=== PATIENT | male | born 1940 | race Caucasian/White ===

== ENCOUNTER 2020-07-16 17:40 | Inpatient (IN) | payer MEDICARE ==
[2020-07-17 07:33] LABS: ALT (SGPT) 17 U/L (8-55); AST (SGOT) 13 U/L (5-34); Albumin 3.2 g/dL (3.4-4.8); Alkaline Phosphatase 114 U/L (40-110); Anion Gap 14 mmol/L (10-20); BUN (Urea Nitrogen) 14 mg/dL (8.4-25.7); Bilirubin, Total 0.3 mg/dL (0.2-1.2); Calc. Creatinine Clearance 0 mL/min (70-130); Calcium 7.3 mg/dL (7.8-10.44); Carbon Dioxide 18 mmol/L (23-31); Chloride 110 mmol/L (98-107); Globulin 2.1 g/dL (2.4-3.5); Glucose 97 mg/dL (83-110); Potassium 3.5 mmol/L (3.5-5.1); Protein, Total 5.3 g/dL (5.8-8.1); Sodium 138 mmol/L (136-145)
[2020-07-17 07:36] LABS: %Neutrophils 58.5 % (42.0-75.0); Hemoglobin 7.9 g/dL (14.0-18.0); Manual Diff?? NO; Mean Corpuscular HGB CONC 34.4 g/dL (32.0-36.0); Mean Corpuscular Hemoglobin 33.5 pg (27.0-31.0); Mean Corpuscular Volume 97.4 fL (78.0-98.0); Mean Platelet Volume 6.2 fL (7.4-10.4); Platelet Count 104 thou/uL (130-400); RBC Distribution Width 18.2 % (11.5-14.5); Red Blood Cell (RBC) Count 2.37 mill/uL (4.70-6.10); White Blood Cell (WBC) Count 3.8 thou/uL (4.8-10.8)
[2020-07-17 07:37] LABS: #Lymphocytes 0.8 thou/uL (1.20-3.40); #Monocytes 0.7 thou/uL (0.11-0.59); #Neutrophils 2.2 thou/uL (1.40-6.50); %Basophils 1.1 % (0.0-1.0); %Eosinophils 0.7 % (0.0-10.0); %Lymphocytes 21.2 % (21.0-51.0); %Monocytes 18.5 % (0.0-10.0)
[2020-07-17] MEDS ORDERED: Dexamethasone 4 MG TAB PO SCH (08:45)
[2020-07-17] MEDS ORDERED: Calcium Carbonate 600 MG + Vit D TAB PO SCH (09:00)
[2020-07-17] MEDS ORDERED: FERROUS FUMARATE 89 MG PO SCH (09:00)
[2020-07-17] MEDS ORDERED: Non-Formulary Item 1 EACH (Cholecalciferol (Vitamin D3) [Vitamin D3] 2,000 UNIT Capsule) PO SCH (09:00)
[2020-07-17] MEDS ORDERED: Non-Formulary Item 1 EACH (Cyanocobalamin (Vitamin B-12) [Vitamin B12] 2,500 MCG Tablet) PO SCH (09:00)
[2020-07-17] MEDS ORDERED: Dexamethasone 1 MG TAB PO SCH (09:00)
[2020-07-17] MEDS ORDERED: Ferrous Sulfate 325 MG TAB PO SCH (09:00)
[2020-07-17] MEDS ORDERED: Ondansetron ODT 4 MG TAB PO PRN (09:01)
[2020-07-17] MEDS: Polyethylene Glycol 3350 17 GM Packet PO SCH (10:42)
[2020-07-17] MEDS: Amlodipine 5 MG TAB PO SCH ×2 (10:43→20:41)
[2020-07-17] MEDS: Allopurinol 100 MG TAB PO SCH ×2 (10:43→20:41)
[2020-07-17] MEDS: Tamsulosin HCl 0.4 MG CAP PO SCH (10:44)
[2020-07-17] MEDS: Primidone 50 MG TAB PO SCH ×2 (10:44→20:40)
[2020-07-17] MEDS: Cyanocobalamin (Vitamin B-12) 1,000 MCG TAB PO SCH (10:45)
[2020-07-17] MEDS: Finasteride 5 MG TAB PO SCH (10:46)
[2020-07-17] MEDS: Folic Acid 1 MG TAB PO SCH (10:46)
[2020-07-17] MEDS: hydrALAZINE 25 MG TAB PO SCH ×3 (10:46→20:41)
[2020-07-17] MEDS: Cholecalciferol 1,000 UNITS (25 MCG) TAB PO SCH (10:46)
[2020-07-17] MEDS: HYDROcodone/Acetaminophen 10/325 mg Tablet PO PRN ×2 (15:05→20:37)
[2020-07-17] MEDS: Calcium Carbonate 600 MG + Vit D TAB PO SCH (17:25)
[2020-07-17] MEDS: traZODone HCl 50 MG TAB PO SCH (20:40)
[2020-07-17] MEDS: LOTEPREDNOL ETABONATE EA EYE SCH (20:41)
[2020-07-17] MEDS: PHENobarbital 32.4 MG TAB PO SCH (20:42)
[2020-07-17] MEDS: diphenhydrAMINE 25 MG CAP PO PRN (23:07)
[2020-07-18 06:00] LABS: Band 2 % (5-11); Bite Cells SLIGHT = 2-5 cells (100X) (0-1/hpf); Hemoglobin 7.7 g/dL (14.0-18.0); Hypochromia MODERATE=16-30 cells (100X) (0-5/hpf); Lymphocytes 22 % (21-51); MDiff Complete? YES; Mean Corpuscular HGB CONC 34.6 g/dL (32.0-36.0); Mean Corpuscular Hemoglobin 33.3 pg (27.0-31.0); Mean Corpuscular Volume 96.1 fL (78.0-98.0); Mean Platelet Volume 5.9 fL (7.4-10.4); Metamyelocyte 1 % (0-0); Microcytosis MODERATE=15-30 cells (100X) (0-5/hpf); Monocytes 12 % (0-10); Neutrophil 63 % (42-75); Ovalocytes SLIGHT = 2-5 cells (100X) (0-1/hpf); Platelet Count 99 thou/uL (130-400); Platelet Morphology Comment Appears Decreased; Poikilocytosis MODERATE=16-30 cells (100X) (0-5/hpf); RBC Distribution Width 16.9 % (11.5-14.5); Spherocytes SLIGHT = 1-5 cells (100X) (None Seen); Tear Drops SLIGHT = 2-5 cells (100X) (0-1/hpf); White Blood Cell (WBC) Count 3.4 thou/uL (4.8-10.8)
[2020-07-18] MEDS: Levothyroxine Sodium 75 MCG TAB PO SCH (06:00)
[2020-07-18] MEDS: HYDROcodone/Acetaminophen 10/325 mg Tablet PO PRN ×3 (06:02→20:28)
[2020-07-18 06:06] LABS: ALT (SGPT) 13 U/L (8-55); AST (SGOT) 12 U/L (5-34); Albumin 3.1 g/dL (3.4-4.8); Alkaline Phosphatase 115 U/L (40-110); Anion Gap 12 mmol/L (10-20); BUN (Urea Nitrogen) 15 mg/dL (8.4-25.7); Bilirubin, Total 0.4 mg/dL (0.2-1.2); Calc. Creatinine Clearance 45 mL/min (70-130); Calcium 7.8 mg/dL (7.8-10.44); Carbon Dioxide 21 mmol/L (23-31); Chloride 110 mmol/L (98-107); Globulin 2.1 g/dL (2.4-3.5); Glucose 96 mg/dL (83-110); Potassium 3.7 mmol/L (3.5-5.1); Protein, Total 5.2 g/dL (5.8-8.1); Sodium 139 mmol/L (136-145)
[2020-07-18] MEDS: Polyethylene Glycol 3350 17 GM Packet PO SCH (08:22)
[2020-07-18] MEDS: Cyanocobalamin (Vitamin B-12) 1,000 MCG TAB PO SCH (08:23)
[2020-07-18] MEDS: Cholecalciferol 1,000 UNITS (25 MCG) TAB PO SCH (08:23)
[2020-07-18] MEDS: Ferrous Sulfate 325 MG TAB PO SCH (08:24)
[2020-07-18] MEDS: Amlodipine 5 MG TAB PO SCH ×2 (08:25→20:28)
[2020-07-18] MEDS: Calcium Carbonate 600 MG + Vit D TAB PO SCH ×2 (08:25→16:51)
[2020-07-18] MEDS: Finasteride 5 MG TAB PO SCH (08:26)
[2020-07-18] MEDS: Allopurinol 100 MG TAB PO SCH ×2 (08:27→20:28)
[2020-07-18] MEDS: Folic Acid 1 MG TAB PO SCH (08:27)
[2020-07-18] MEDS: Tamsulosin HCl 0.4 MG CAP PO SCH (08:27)
[2020-07-18] MEDS: hydrALAZINE 25 MG TAB PO SCH ×3 (08:28→20:28)
[2020-07-18] MEDS: Primidone 50 MG TAB PO SCH ×2 (08:28→20:30)
[2020-07-18] MEDS: LOTEPREDNOL ETABONATE EA EYE SCH ×2 (08:30→20:26)
[2020-07-18] MEDS: Dexamethasone 1 MG TAB PO SCH (08:40)
[2020-07-18] MEDS ORDERED: FLU VACC QS2020-21(65YR UP)/PF 240 MCG/0.7 ML SYRINGE IM ONE (09:00)
[2020-07-18] MEDS: traZODone HCl 50 MG TAB PO SCH (20:26)
[2020-07-18] MEDS: diphenhydrAMINE 25 MG CAP PO PRN (20:27)
[2020-07-18] MEDS: PHENobarbital 32.4 MG TAB PO SCH (20:27)
[2020-07-19] MEDS: HYDROcodone/Acetaminophen 10/325 mg Tablet PO PRN ×2 (06:29→12:18)
[2020-07-19] MEDS: Levothyroxine Sodium 75 MCG TAB PO SCH (06:29)
[2020-07-19] MEDS: Polyethylene Glycol 3350 17 GM Packet PO SCH (08:50)
[2020-07-19] MEDS: LOTEPREDNOL ETABONATE EA EYE SCH ×2 (08:50→21:02)
[2020-07-19] MEDS: Tamsulosin HCl 0.4 MG CAP PO SCH (08:52)
[2020-07-19] MEDS: Finasteride 5 MG TAB PO SCH (08:52)
[2020-07-19] MEDS: Cholecalciferol 1,000 UNITS (25 MCG) TAB PO SCH (08:52)
[2020-07-19] MEDS: Folic Acid 1 MG TAB PO SCH (08:52)
[2020-07-19] MEDS: hydrALAZINE 25 MG TAB PO SCH ×3 (08:53→21:02)
[2020-07-19] MEDS: Calcium Carbonate 600 MG + Vit D TAB PO SCH ×2 (08:53→17:35)
[2020-07-19] MEDS: Ferrous Sulfate 325 MG TAB PO SCH (08:53)
[2020-07-19] MEDS: Dexamethasone 1 MG TAB PO SCH (08:53)
[2020-07-19] MEDS: Cyanocobalamin (Vitamin B-12) 1,000 MCG TAB PO SCH (08:53)
[2020-07-19] MEDS: Allopurinol 100 MG TAB PO SCH ×2 (08:54→21:01)
[2020-07-19] MEDS: Amlodipine 5 MG TAB PO SCH ×2 (09:20→21:01)
[2020-07-19] MEDS: Primidone 50 MG TAB PO SCH ×2 (10:21→20:58)
[2020-07-19] MEDS ORDERED: Ondansetron ODT 4 MG TAB PO PRN (13:45)
[2020-07-19] MEDS: PHENobarbital 32.4 MG TAB PO SCH (21:01)
[2020-07-19] MEDS: traZODone HCl 50 MG TAB PO SCH (21:01)
[2020-07-19] MEDS: diphenhydrAMINE 25 MG CAP PO PRN (22:00)
[2020-07-20] MEDS: Levothyroxine Sodium 75 MCG TAB PO SCH (05:52)
[2020-07-20] MEDS: HYDROcodone/Acetaminophen 10/325 mg Tablet PO PRN ×2 (08:12→16:02)
[2020-07-20] MEDS: Cyanocobalamin (Vitamin B-12) 1,000 MCG TAB PO SCH (08:14)
[2020-07-20] MEDS: Folic Acid 1 MG TAB PO SCH (08:14)
[2020-07-20] MEDS: Cholecalciferol 1,000 UNITS (25 MCG) TAB PO SCH (08:14)
[2020-07-20] MEDS: Primidone 50 MG TAB PO SCH ×2 (08:14→20:23)
[2020-07-20] MEDS: Amlodipine 5 MG TAB PO SCH ×2 (08:15→20:24)
[2020-07-20] MEDS: Calcium Carbonate 600 MG + Vit D TAB PO SCH ×2 (08:15→15:57)
[2020-07-20] MEDS: Ferrous Sulfate 325 MG TAB PO SCH (08:15)
[2020-07-20] MEDS: Finasteride 5 MG TAB PO SCH (08:15)
[2020-07-20] MEDS: Allopurinol 100 MG TAB PO SCH ×2 (08:16→20:24)
[2020-07-20] MEDS: Tamsulosin HCl 0.4 MG CAP PO SCH (08:16)
[2020-07-20] MEDS: Polyethylene Glycol 3350 17 GM Packet PO SCH (08:17)
[2020-07-20] MEDS: hydrALAZINE 25 MG TAB PO SCH ×3 (08:17→20:24)
[2020-07-20] MEDS: LOTEPREDNOL ETABONATE EA EYE SCH ×2 (08:17→20:25)
--- NOTE | 2020-07-20 11:25 | RAD ---
EXAM: Single view of the chest HISTORY: Chest pain and shortness of breath COMPARISON: 07/09/2020 FINDINGS: Single view of the chest shows an enlarged but stable cardiomediastinal silhouette. Is a sm all right pleural effusion. There may also be a trace left pleural effusion. No pneumothorax is seen. Multiple right rib fractures are seen. IMPRESSION: Small bilateral pleural effusions and cardiomegaly
[2020-07-20 11:56] LABS: Troponin I Less than 0.010 ng/mL (< 0.028)
[2020-07-20 12:04] LABS: MDiff Complete? YES; Mean Corpuscular HGB CONC 35.1 g/dL (32.0-36.0); Mean Corpuscular Hemoglobin 34.1 pg (27.0-31.0); Mean Corpuscular Volume 97.3 fL (78.0-98.0); Mean Platelet Volume 6.2 fL (7.4-10.4); Platelet Count 115 thou/uL (130-400); RBC Distribution Width 17.6 % (11.5-14.5); Red Blood Cell (RBC) Count 2.34 mill/uL (4.70-6.10); White Blood Cell (WBC) Count 4.2 thou/uL (4.8-10.8)
[2020-07-20 12:05] LABS: Anisocytosis SLIGHT = 6-15 cells (100X) (0-5/hpf); Band 1 % (5-11); Bite Cells SLIGHT = 2-5 cells (100X) (0-1/hpf); Hypochromia SLIGHT = 6-15 cells (100X) (0-5/hpf); Lymphocytes 21 % (21-51); Microcytosis SLIGHT = 6-15 cells (100X) (0-5/hpf); Monocytes 22 % (0-10); Neutrophil 56 % (42-75); Nucleated RBC 1 % (0); Ovalocytes SLIGHT = 2-5 cells (100X) (0-1/hpf); Platelet Morphology Comment Appears Decreased; Poikilocytosis SLIGHT = 6-15 cells (100X) (0-5/hpf); Tear Drops SLIGHT = 2-5 cells (100X) (0-1/hpf)
[2020-07-20] MEDS: traZODone HCl 50 MG TAB PO SCH (20:24)
[2020-07-20] MEDS: PHENobarbital 32.4 MG TAB PO SCH (20:24)
[2020-07-21] MEDS: HYDROcodone/Acetaminophen 10/325 mg Tablet PO PRN ×4 (00:14→20:42)
[2020-07-21] MEDS: diphenhydrAMINE 25 MG CAP PO PRN ×2 (00:14→20:42)
[2020-07-21] MEDS: Levothyroxine Sodium 75 MCG TAB PO SCH (06:19)
--- NOTE | 2020-07-21 06:29 | PRG ---
DATE OF SERVICE: 07/20/2020 SUBJECTIVE: The patient complaining of recurrent pain, which he states he has had this in the past when he is doing exercises. He is having no cough, fever or chills, diaphoresis, or shortness of breath. OBJECTIVE: VITAL SIGNS: Shows temperature is 98.5, pulse 97, respirations 20, O2 saturations 92% on room air, and blood pressure 137/64. LUNGS: Clear. CARDIAC: Shows regular rhythm. ABDOMEN: Soft, nontender. DIAGNOSTIC DATA: Chest x-ray showed persistent small bilateral effusion, cardiomegaly, but also shows multiple bilateral rib fractures old. Laboratory shows troponin normal and EKG shows sinus rhythm. ASSESSMENT: 1. Chest pain, most likely due to old rib fractures and we will discuss the family. 2. Multiple myeloma, stable, but with significant deconditioning. 3. Urinary retention. Romo catheter in place. 4. Malnutrition, hypoalbuminemia, eating well. Continue to monitor. PLAN: 1. Continue PT and OT. We will decrease intensity of exercise as the patient is very exhausted. 2. Chest pain, most likely due to rib fractures and will be careful with diffuse multiple myeloma. 3. Urinary retention, stable. Romo catheter in place. 4. Seizure disorder with subtherapeutic Dilantin level. We will repeat Dilantin level today. Job ID: [id number]
--- NOTE | 2020-07-21 06:33 | PRG ---
DATE OF SERVICE: 07/19/2020 SUBJECTIVE: The patient feels well and ready for therapy today, rested well through the weekend. OBJECTIVE: VITAL SIGNS: Show temperature is 98, pulse 87, respirations 18, and O2 saturations 92% on room air. LUNGS: Show decreased breath sounds in the bases. CARDIAC: Showed regular rhythm. ASSESSMENT: 1. Kyphoplasty, lumbar spine with decreased back pain. 2. Deconditioning, ready for more therapy. 3. Multiple myeloma on treatment with persistent anemia, but ready for more therapy. 4. Urinary retention. Romo catheter in place, continue until discharge. PLAN: Start PT/OT today. Continue pain relief as needed. Continue to stress nutrition. Continue to monitor for recurrent anemia. Job ID: [id number]
--- NOTE | 2020-07-21 06:33 | PRG ---
DATE OF SERVICE: 07/18/2020 OBJECTIVE: The patient is lying in bed, feels well, enjoying the rest day prior to his onset of therapy tomorrow. Having no shortness of breath or chest pain at rest and is eating well. OBJECTIVE: VITAL SIGNS: Show temperature 97.2, pulse 91, respirations 16, O2 saturations 92% on room air, blood pressure 158/66. HEENT: Shows pale sclerae. Conjunctivae injected. LUNGS: Show decreased breath sounds at bases. CARDIAC: Shows regular rhythm. ABDOMEN: Soft, nontender. LABORATORY DATA: Hemoglobin 7.7, white count 3400, platelets 99,000. Sodium 139, potassium 3.7, chloride 110, bicarb 21, BUN 15, creatinine 1.25, phosphatase 150, albumin 3.1. ASSESSMENT: 1. Multiple myeloma, stable on Velcade treatment. 2. Recent kyphoplasty with markedly decreased back pain. 3. Severe deconditioning, awaiting physical therapy tomorrow. 4. Urinary retention, on tamsulosin and finasteride with Romo catheter in place until seen by Urology. Job ID: [id number]
--- NOTE | 2020-07-21 07:11 | HP ---
HISTORY OF PRESENT ILLNESS: The patient is an unfortunate 80-year-old white male with a history of multiple myeloma, being treated for several years by Dr. Patel Villavicencio with Velcade treatment, who has been found to have also chronic lower back pain for years with recent finding of compression fracture of T11 as well as stenosis at L4-5. He electively had kyphoplasty done of L4-L5, T11 for pain relief and has had improvement in his pain. However, he has developed complications postoperatively of urinary retention, requiring Romo catheter and has become severely weakened and felt to be unable to be discharged home, and therefore has been admitted to [facility] for therapy. He has had problems with recurrent anemia secondary to his multiple myeloma and has required transfusions, most recent on July 11. He, however, is still very weak with minimal symptoms at rest, but with significant dyspnea on minimal exertion. He also has had recurrent pain in his chest and PET scan had shown multiple rib fractures with diffuse mottling of his ribs well as his spine. He has been found to have a very large effusion and seen by Pulmonary, and was felt that these were not large enough for thoracentesis. He will be treated with diuretics, felt that this possibly was some slight fluid overload. He is not complaining of any dyspnea at rest and he only has chest pain on significant exertion. PAST MEDICAL HISTORY: Positive for the above-mentioned multiple myeloma. He also has a history of colon cancer with lymph node dissection and a colostomy with a parastomal hernia, one time causing obstruction. He also has a history of hypertension, off medications at this time. Epilepsy, hyperlipidemia, hypothyroidism. PAST SURGICAL HISTORY: Positive for colon and rectal surgeries, colostomy since 2001, tonsillectomy, , laminectomy in the late 70s and early 80s. FAMILY MEDICAL HISTORY: Positive for father with skin cancer and brain cancer. Mother with lymph node cancer, in her 70s. Sister with fibrosis. Another sister with lung cancer. SOCIAL HISTORY: Denies any nicotine or alcohol abuse. ALLERGIES: HE HAS NO KNOWN ALLERGIES. MEDICATIONS: On admission include: 1. Amlodipine 5 mg twice daily. 2. Allopurinol 100 twice daily. 3. Vitamin D 2000 units daily. 4. Ferrous sulfate 325 daily. 5. Finasteride 5 daily. 6. Folic acid 1 mg daily. 7. Hydralazine 25 three times daily. 8. Levothyroxine 75 mcg daily. 9. Dilantin 200 mg twice daily. 10. MiraLAX 17 g daily. 11. Tamsulosin 0.4 daily. 12. Trazodone 50 nightly. REVIEW OF SYSTEMS: HEENT: He denies any headaches, dizziness, change in vision, hearing, hoarseness, or dysphagia. PULMONARY: He denies cough, sputum production, pneumonia. He has had recurrent chest pain. He has had some shortness of breath with exertion. GASTROINTESTINAL: He has fair appetite, recurrent nausea. No abdominal pain, but some mild constipation. He has ostomy. GENITOURINARY: He has markedly decreased stream progressing over the last several months and now has had Romo catheter placed, and will be kept in until seen by Urology. MUSCULOSKELETAL: He has chronic lower back pain, now is having usually, mainly with weakness, but the back pain has improved after the kyphoplasty. NEUROLOGIC: He has diffuse generalized weakness, but localized numbness and tingling PHYSICAL EXAMINATION: VITAL SIGNS: Temperature is 97, respirations 18, O2 sats 94% on room air, blood pressure 139/66. HEENT: Pupils are equal, round, and reactive to light and accommodations. Sclerae are pale. Right conjunctiva slightly injected. Oral mucous membranes are dehydrated. NECK: Supple. There are no nodes or masses. JVP is not elevated. LUNGS: Show decreased breath sounds at bases. No rales, rhonchi, rubs, or wheezes. CARDIAC: Shows regular rhythm. No gallops or murmurs. ABDOMEN: Soft and nontender. No masses or organomegaly. SKIN/EXTREMITIES: Show decreased skin turgor. No edema, clubbing, or cyanosis. NEUROLOGIC: Cranial nerves 2 through 12 are intact. Deep tendon reflex 2+ and equal. There are absent Babinski's. LABORATORY DATA: Shows hemoglobin 7.9, hematocrit 23, white count of 3800, platelet count 104,000. Sodium 138, potassium 3.5, chloride 110, bicarb 18, BUN 14, creatinine 1.14, calcium 7.3, alkaline phosphatase 114, protein 5.3, albumin 3.2. Dialysis has not been done recently. Dilantin level subtherapeutic at 4.6, recent. ASSESSMENT: 1. An 80-year-old white male with history of multiple myeloma, on chemotherapy under Dr. Villavicencio with most recent dose of Velcade earlier this week. No further treatment required, but with recurrent anemia, requiring periodic transfusion if hemoglobin is less than 7. 2. Recent kyphoplasty for compression fracture of lumbar spine and spinal stenosis with markedly decreased pain. 3. New onset of urinary retention, likely due to benign prostatic hypertrophy, now on tamsulosin and finasteride with Romo catheter in place until seen by urologist. 4. Recurrent onset of hypertension, now on treatment with fair control. We will monitor closely. 5. History of epilepsy, on Dilantin with subtherapeutic level and we will repeat dose and level. 6. Recurrent anemia and poor nutrition, but the patient is eating well. We will monitor closely. Continue on B12 and iron supplementation. PLAN: 1. PT, OT. 2. Check Dilantin levels. 3. Continue prehospitalization medications. 4. Monitor for recurrent anemia. 5. Monitor vital signs with therapy. Job ID: [id number]
[2020-07-21] MEDS: Polyethylene Glycol 3350 17 GM Packet PO SCH (08:47)
[2020-07-21] MEDS: LOTEPREDNOL ETABONATE EA EYE SCH ×2 (08:47→20:40)
[2020-07-21] MEDS: Ferrous Sulfate 325 MG TAB PO SCH (08:48)
[2020-07-21] MEDS: hydrALAZINE 25 MG TAB PO SCH ×3 (08:48→20:40)
[2020-07-21] MEDS: Primidone 50 MG TAB PO SCH ×2 (08:49→20:40)
[2020-07-21] MEDS: Finasteride 5 MG TAB PO SCH (08:49)
[2020-07-21] MEDS: Cholecalciferol 1,000 UNITS (25 MCG) TAB PO SCH (08:49)
[2020-07-21] MEDS: Calcium Carbonate 600 MG + Vit D TAB PO SCH ×2 (08:49→17:09)
[2020-07-21] MEDS: Cyanocobalamin (Vitamin B-12) 1,000 MCG TAB PO SCH (08:50)
[2020-07-21] MEDS: Allopurinol 100 MG TAB PO SCH ×2 (08:50→20:42)
[2020-07-21] MEDS: Tamsulosin HCl 0.4 MG CAP PO SCH (08:50)
[2020-07-21] MEDS: Folic Acid 1 MG TAB PO SCH (08:50)
[2020-07-21] MEDS: Amlodipine 5 MG TAB PO SCH ×2 (08:53→20:41)
[2020-07-21] MEDS: traZODone HCl 50 MG TAB PO SCH (20:41)
[2020-07-21] MEDS: PHENobarbital 32.4 MG TAB PO SCH (20:42)
[2020-07-22] MEDS: HYDROcodone/Acetaminophen 10/325 mg Tablet PO PRN ×4 (03:46→22:12)
[2020-07-22] MEDS: Levothyroxine Sodium 75 MCG TAB PO SCH (06:07)
--- NOTE | 2020-07-22 06:17 | PRG ---
DATE OF SERVICE: 07/21/2020 SUBJECTIVE: The patient became very fatigued and tachycardic with therapy today with heart rate up to 139. EKG only showed sinus tachycardia and heart rate did decrease when placed at bed rest. He did not complain of any chest pain or shortness of breath, but just stated he was very fatigued, O2 sats remained stable on 97% to 98%. OBJECTIVE: LUNGS: Remained clear. CARDIAC: Showed regular rhythm. ABDOMEN: Soft and nontender. LABORATORY DATA: Previous day CBC has been stable as well as troponin. ASSESSMENT: 1. Significant deconditioning with significant tachycardia with exercise but returned to rest with no symptoms at rest. 2. Multiple myeloma significant but stable with hemoglobin slightly increased to 8. 3. Stable rib fractures causing pain, but with decreasing pain in the back after kyphoplasty. 4. Urinary retention, stable with Romo catheter in place. PLAN: 1. Discuss with Physical Therapy and decrease intensity of therapy. 2. Repeat CBC in the a.m. to ensure no significant decrease in hemoglobin and dehydration. 3. I had a long discussion with son about his prognosis and inability to tolerate intensive therapy and we will attempt to decrease intensity and hopefully increase the patient's strength. Job ID: [id number]
[2020-07-22 06:32] LABS: Anion Gap 14 mmol/L (10-20); BUN (Urea Nitrogen) 21 mg/dL (8.4-25.7); Calc. Creatinine Clearance 42 mL/min (70-130); Calcium 8.1 mg/dL (7.8-10.44); Carbon Dioxide 21 mmol/L (23-31); Chloride 108 mmol/L (98-107); Glucose 100 mg/dL (83-110); Potassium 4.7 mmol/L (3.5-5.1); Sodium 138 mmol/L (136-145)
[2020-07-22 06:38] LABS: Anisocytosis SLIGHT = 6-15 cells (100X) (0-5/hpf); Band 10 % (5-11); Eosinophils 1 % (0-10); Hemoglobin 7.6 g/dL (14.0-18.0); Lymphocytes 39 % (21-51); MDiff Complete? YES; Mean Corpuscular HGB CONC 33.8 g/dL (32.0-36.0); Mean Corpuscular Hemoglobin 33.4 pg (27.0-31.0); Mean Corpuscular Volume 98.8 fL (78.0-98.0); Mean Platelet Volume 6.6 fL (7.4-10.4); Microcytosis SLIGHT = 6-15 cells (100X) (0-5/hpf); Monocytes 1 % (0-10); Neutrophil 49 % (42-75); Ovalocytes SLIGHT = 2-5 cells (100X) (0-1/hpf); Platelet Count 111 thou/uL (130-400); Platelet Morphology Comment Appears Decreased; Poikilocytosis SLIGHT = 6-15 cells (100X) (0-5/hpf); RBC Distribution Width 17.8 % (11.5-14.5); Red Blood Cell (RBC) Count 2.27 mill/uL (4.70-6.10); White Blood Cell (WBC) Count 4.4 thou/uL (4.8-10.8)
[2020-07-22] MEDS: Primidone 50 MG TAB PO SCH ×2 (08:34→20:39)
[2020-07-22] MEDS: Calcium Carbonate 600 MG + Vit D TAB PO SCH ×2 (08:34→15:57)
[2020-07-22] MEDS: LOTEPREDNOL ETABONATE EA EYE SCH ×2 (08:34→20:40)
[2020-07-22] MEDS: Folic Acid 1 MG TAB PO SCH (08:35)
[2020-07-22] MEDS: hydrALAZINE 25 MG TAB PO SCH ×3 (08:35→20:38)
[2020-07-22] MEDS: Finasteride 5 MG TAB PO SCH (08:35)
[2020-07-22] MEDS: Cholecalciferol 1,000 UNITS (25 MCG) TAB PO SCH (08:35)
[2020-07-22] MEDS: Tamsulosin HCl 0.4 MG CAP PO SCH (08:35)
[2020-07-22] MEDS: Allopurinol 100 MG TAB PO SCH ×2 (08:36→20:39)
[2020-07-22] MEDS: Amlodipine 5 MG TAB PO SCH ×2 (08:36→20:38)
[2020-07-22] MEDS: Ferrous Sulfate 325 MG TAB PO SCH (08:36)
[2020-07-22] MEDS: Polyethylene Glycol 3350 17 GM Packet PO SCH (08:37)
[2020-07-22] MEDS: Cyanocobalamin (Vitamin B-12) 1,000 MCG TAB PO SCH (08:37)
[2020-07-22] MEDS: traZODone HCl 50 MG TAB PO SCH (20:38)
[2020-07-22] MEDS: PHENobarbital 32.4 MG TAB PO SCH (20:40)
[2020-07-23] MEDS: Levothyroxine Sodium 75 MCG TAB PO SCH (05:31)
[2020-07-23] MEDS: HYDROcodone/Acetaminophen 10/325 mg Tablet PO PRN ×3 (08:18→20:51)
[2020-07-23] MEDS: Polyethylene Glycol 3350 17 GM Packet PO SCH (08:18)
[2020-07-23] MEDS: Tamsulosin HCl 0.4 MG CAP PO SCH (08:21)
[2020-07-23] MEDS: Cyanocobalamin (Vitamin B-12) 1,000 MCG TAB PO SCH (08:21)
[2020-07-23] MEDS: Calcium Carbonate 600 MG + Vit D TAB PO SCH ×2 (08:21→16:07)
[2020-07-23] MEDS: Ferrous Sulfate 325 MG TAB PO SCH (08:21)
[2020-07-23] MEDS: Cholecalciferol 1,000 UNITS (25 MCG) TAB PO SCH (08:21)
[2020-07-23] MEDS: Primidone 50 MG TAB PO SCH ×2 (08:22→20:50)
[2020-07-23] MEDS: Folic Acid 1 MG TAB PO SCH (08:22)
[2020-07-23] MEDS: Finasteride 5 MG TAB PO SCH (08:22)
[2020-07-23] MEDS: Amlodipine 5 MG TAB PO SCH ×2 (08:23→20:50)
[2020-07-23] MEDS: hydrALAZINE 25 MG TAB PO SCH ×3 (08:24→20:49)
[2020-07-23] MEDS: Allopurinol 100 MG TAB PO SCH ×2 (08:33→20:49)
[2020-07-23] MEDS: LOTEPREDNOL ETABONATE EA EYE SCH ×2 (08:34→20:58)
--- NOTE | 2020-07-23 11:57 | CT ---
THORACIC SPINE CT WITHOUT CONTRAST: HISTORY: Thoracic spine fractures. COMPARISON: None. CORRELATION: Thoracic spine MRI 06/22/2020. FINDINGS: The visualized mediastinum does not demonstrate any mass, lymphadenopathy or hematoma. Heart is sligh tly enlarged. No significant pericardial fluid. There are small bilateral pleural effusions. Bilateral adjacent lung consolidation likely due to atelectasis. Trachea and central bronchi are bower nt. Subdiaphragmatic structures do not demonstrate any acute abnormality. There is evidence of pneumobili a. Correlate for possible previous intervention at the sphincter of Oddi. There is diffuse abnormal attenuation and demineralization throughout the thoracic spine. There is pr evious vertebroplasty change at T7. There are compression fractures with mild loss of vertebral body height at T11 and T12. When comparing the previous CT, no interval change in loss of vertebral b chidi height. There are no new compression fractures throughout the visualized thoracic spine. There are varying degrees of central canal stenosis and neural foraminal narrowing due to degenerativ e change. Technique limits evaluation. IMPRESSION: 1. Diffuse abnormal attenuation of the thoracic vertebrae, presumed to be due to extensive multiple m yeloma. 2. Stable compression fracture at T11 and T12. Stable post treatment change at T7. No new thoracic sp ine fractures are appreciated. Diffuse bone demineralization does limit evaluation. Transcribed Date/Time: 07/23/2020 12:01 PM
[2020-07-23] MEDS ORDERED: HYDROcodone/Acetaminophen 10/325 mg Tablet PO SCH (12:15)
--- NOTE | 2020-07-23 12:25 | CT ---
CT LUMBAR SPINE NONCONTRAST: DATE: 07/23/2020. HISTORY: An 80-year-old male with multiple myeloma and low back pain. Compression fractures. COMPARISON: MRI of 06/22/2020. FINDINGS: There are 5 lumbar-type vertebrae. There is severe, diffuse osteopenia. No major spondylolisthesis. Baastrup's disease throughout. No major spondylolisthesis or scoliosis. T11-12: Old compression fracture of T12 superior end plate depression resulting in a maximum of appr oximately 60-75% loss of height, slightly greater on prior MRI. Moderate to severe right and moderat e left neural foraminal stenosis. Mild to moderate bony retropulsion, greater than on the prior stud y, and this involves the entire vertical length of the posterior aspect of the T12 vertebral body, re sulting in mild to moderate central spinal canal stenosis. T12-L1: Broad-based disk-osteophytic bar complex encroaches upon the spinal canal but does not cause significant central spinal canal stenosis. High-grade bilateral neural foraminal stenosis. L1-2: Prominent broad-based disk-osteophyte complex indents the ventral aspect of the thecal sac, ca using mild to moderate central spinal canal stenosis. Moderate bilateral neural foraminal stenosis. No significant interval change. L2-3: Prominent central depression of superior end plate of L3 consistent with prominent Schmorl's n ode. In addition, there has also been mild anterior wedge compression deformity of the anterior supe rior end plate resulting in mild loss of height, slightly greater than previously. The moderately lar ge central disk-osteophyte complex deeply indents the thecal sac and causes moderate to severe centra l spinal canal stenosis. There is moderate bilateral neural foraminal stenosis. There is new verteb roplasty cement within the L3 vertebral body. L3-4: Broad-based disk-osteophyte complex. Moderate ligamentum flavum thickening. Mild bilateral f acet DJD. Moderate bilateral neural foraminal stenosis. Moderate central spinal canal stenosis. Mi ld, broad depression of superior end plate of L4, similar to prior study. New vertebroplasty cement within the L4 vertebral body. L4-5: Partial ankylosis across the posterior aspect of the disk space. Possible old right hemilamin ectomy, but with bony overgrowth such that the defect has closed. No central spinal canal stenosis. Moderate bilateral neural foraminal stenosis. Ankylosis of bilateral facet joints. L5-S1: No central spinal canal stenosis. Bilateral mild to moderate facet DJD. Bilateral moderate neural foraminal stenosis. IMPRESSION: 1. Severe osteopenia: evidence for a multiple myeloma. 2. Old compression fracture of T12, probably slightly worse than before. 3. Compression fractures of L3 and L4 treated with vertebroplasty. 4. Multilevel moderate bilateral neural foraminal stenosis. POS: AH
[2020-07-23 17:22] LABS: Hemoglobin 8.7 g/dL (14.0-18.0)
[2020-07-23] MEDS: PHENobarbital 32.4 MG TAB PO SCH (20:49)
[2020-07-23] MEDS: traZODone HCl 50 MG TAB PO SCH (20:49)
[2020-07-24] MEDS: HYDROcodone/Acetaminophen 10/325 mg Tablet PO PRN ×6 (01:00→21:41)
[2020-07-24] MEDS: Levothyroxine Sodium 75 MCG TAB PO SCH (05:38)
[2020-07-24] MEDS: Ferrous Sulfate 325 MG TAB PO SCH (08:22)
[2020-07-24] MEDS: Tamsulosin HCl 0.4 MG CAP PO SCH (08:22)
[2020-07-24] MEDS: Calcium Carbonate 600 MG + Vit D TAB PO SCH ×2 (08:22→17:09)
[2020-07-24] MEDS: Polyethylene Glycol 3350 17 GM Packet PO SCH (08:23)
[2020-07-24] MEDS: Cholecalciferol 1,000 UNITS (25 MCG) TAB PO SCH (08:23)
[2020-07-24] MEDS: Cyanocobalamin (Vitamin B-12) 1,000 MCG TAB PO SCH (08:24)
[2020-07-24] MEDS: hydrALAZINE 25 MG TAB PO SCH ×3 (08:24→21:30)
[2020-07-24] MEDS: Finasteride 5 MG TAB PO SCH (08:24)
[2020-07-24] MEDS: Allopurinol 100 MG TAB PO SCH ×2 (08:24→21:31)
[2020-07-24] MEDS: Folic Acid 1 MG TAB PO SCH (08:25)
[2020-07-24] MEDS: Amlodipine 5 MG TAB PO SCH ×2 (08:25→21:29)
[2020-07-24] MEDS: LOTEPREDNOL ETABONATE EA EYE SCH ×2 (08:26→21:31)
--- NOTE | 2020-07-24 08:54 | PRG ---
DATE OF SERVICE: 07/24/2020 HISTORY OF PRESENT ILLNESS: This is an 80-year-old male with history of multiple myeloma, here for PT and OT services. The patient continues to be very fatigue and tachycardiac with Therapy and Primary team is attempted to decrease the intensity and increase the patient's strength; however, patient does have significant pain and had a persisting complaint of chest pain since he has been here. Workup previously has been unremarkable with negative troponin. This pain is improved with [place] that the patient gets p.r.n. OBJECTIVE: VITAL SIGNS: Temperature 98.4, pulse 94 to 99, blood pressure 132/62 to 159/72, respirations 20, O2 saturations 95% on room air. GENERAL: Frail appearing 80-year-old male lying in bed, ill-appearing patient. HEART: Regular rate and rhythm. No murmurs, gallops, or rubs. RESPIRATORY: Clear to auscultation bilaterally. No wheezes or rhonchi. CHEST: Tender to palpation diffusely on the chest with the patient being more tender at the site of his rib fractures. GI: Soft, nontender to palpation. Bowel sounds positive in all 4 quadrants. EXTREMITIES: Generalized weakness. ASSESSMENT: 1. Significant deconditioning with tachycardia during exercise, but with return to regular rate at rest. 2. Chronic chest pain with unremarkable previous workup. This is likely due to his multiple rib fractures and general prognosis due to his multiple myeloma. We will continue to monitor. 3. Multiple myeloma with stable H and H. 4. Stable rib fractures causing pain. 5. Urinary retention with Romo. PLAN: 1. PT/OT has been d/c'd by primary physician. 2. Continue to monitor H and H with serial CBCs. 3. Continue to monitor chest pain at this time. The patient's symptoms did not appear to be cardiac as he does not have any radiation of the pain or sweating or shortness of breath, but this pain seems to be chronic and due to his rib fractures; however, if he does exhibit any cardiac symptoms, concomitantly with the chest pain, we will need to do a stat EKG and troponin. The patient is overall stable at this time. Job ID: [id number] MTDD
[2020-07-24] MEDS: Primidone 50 MG TAB PO SCH ×2 (09:43→21:30)
[2020-07-24] MEDS: traZODone HCl 50 MG TAB PO SCH (21:29)
[2020-07-24] MEDS: PHENobarbital 32.4 MG TAB PO SCH (21:29)
[2020-07-24] MEDS: diphenhydrAMINE 25 MG CAP PO PRN (21:31)
[2020-07-25] MEDS: HYDROcodone/Acetaminophen 10/325 mg Tablet PO PRN ×6 (02:08→22:52)
[2020-07-25] MEDS: Levothyroxine Sodium 75 MCG TAB PO SCH (06:21)
[2020-07-25] MEDS: Primidone 50 MG TAB PO SCH ×2 (09:00→21:12)
[2020-07-25] MEDS: Calcium Carbonate 600 MG + Vit D TAB PO SCH ×2 (09:00→17:40)
[2020-07-25] MEDS: Ferrous Sulfate 325 MG TAB PO SCH (09:00)
[2020-07-25] MEDS: Tamsulosin HCl 0.4 MG CAP PO SCH (09:01)
[2020-07-25] MEDS: Polyethylene Glycol 3350 17 GM Packet PO SCH (09:01)
[2020-07-25] MEDS: Cholecalciferol 1,000 UNITS (25 MCG) TAB PO SCH (09:01)
[2020-07-25] MEDS: hydrALAZINE 25 MG TAB PO SCH ×3 (09:02→21:14)
[2020-07-25] MEDS: Amlodipine 5 MG TAB PO SCH ×2 (09:02→21:13)
[2020-07-25] MEDS: Cyanocobalamin (Vitamin B-12) 1,000 MCG TAB PO SCH (09:02)
[2020-07-25] MEDS: Folic Acid 1 MG TAB PO SCH (09:02)
[2020-07-25] MEDS: Allopurinol 100 MG TAB PO SCH ×2 (09:02→21:14)
[2020-07-25] MEDS: Finasteride 5 MG TAB PO SCH (09:02)
[2020-07-25] MEDS: LOTEPREDNOL ETABONATE EA EYE SCH ×2 (09:03→21:12)
[2020-07-25] MEDS ORDERED: Sodium Chloride 0.9% 10 ML ONE (10:39)
[2020-07-25] MEDS: traZODone HCl 50 MG TAB PO SCH (21:12)
[2020-07-25] MEDS: PHENobarbital 32.4 MG TAB PO SCH (21:14)
[2020-07-26] MEDS: HYDROcodone/Acetaminophen 10/325 mg Tablet PO PRN ×6 (02:33→23:31)
[2020-07-26] MEDS: Levothyroxine Sodium 75 MCG TAB PO SCH (05:53)
[2020-07-26] MEDS ORDERED: Sodium Chloride 0.9% 10 ML ONE (08:11)
[2020-07-26] MEDS: Calcium Carbonate 600 MG + Vit D TAB PO SCH ×2 (08:20→17:57)
[2020-07-26] MEDS: Amlodipine 5 MG TAB PO SCH ×2 (08:20→21:32)
[2020-07-26] MEDS: Polyethylene Glycol 3350 17 GM Packet PO SCH (08:20)
[2020-07-26] MEDS: Cholecalciferol 1,000 UNITS (25 MCG) TAB PO SCH (08:20)
[2020-07-26] MEDS: Folic Acid 1 MG TAB PO SCH (08:21)
[2020-07-26] MEDS: hydrALAZINE 25 MG TAB PO SCH ×3 (08:21→21:33)
[2020-07-26] MEDS: Ferrous Sulfate 325 MG TAB PO SCH (08:21)
[2020-07-26] MEDS: Allopurinol 100 MG TAB PO SCH ×2 (08:21→21:32)
[2020-07-26] MEDS: Cyanocobalamin (Vitamin B-12) 1,000 MCG TAB PO SCH (08:21)
[2020-07-26] MEDS: Tamsulosin HCl 0.4 MG CAP PO SCH (08:21)
[2020-07-26] MEDS: LOTEPREDNOL ETABONATE EA EYE SCH ×2 (08:24→21:34)
[2020-07-26] MEDS: Primidone 50 MG TAB PO SCH ×2 (08:24→23:31)
[2020-07-26] MEDS: Finasteride 5 MG TAB PO SCH (08:24)
[2020-07-26] MEDS ORDERED: Dexamethasone 4 MG TAB PO SCH (14:15)
[2020-07-26] MEDS ORDERED: valACYclovir 500 MG TAB PO SCH (15:00)
--- NOTE | 2020-07-26 15:30 | PRG ---
DATE OF SERVICE: 07/26/2020 SUBJECTIVE: Patient feels weak with persistent pain in his back and chest with any movement, but tolerable at rest. He is having no shortness of breath. He is eating well. OBJECTIVE: LUNGS: Clear. CARDIAC: Shows regular rhythm. ABDOMEN: Soft, nontender. CT of the thoracic spine has shown slightly enlarged heart. No significant pericardial fluid. Small bilateral effusions, atelectasis bilaterally, diffuse attenuation throughout thoracic spine. No new compression fractures in the thoracic spine, but lumbar spine does show possible increased compression of T12. ASSESSMENT: 1. Significant debility increasing pain limiting exercise. 2. Diffuse multiple myeloma, status post treatment 2 weeks ago, planning for treatment today and visit with Dr. Villavicencio today and discussion about ongoing therapy. 3. Urinary retention, stable. PLAN: 1. Hold therapy until seen by Dr. Villavicencio and Dr. Kelly this week if he has any evidence of other types of pain relief. 2. Chemotherapy and evaluation by Dr. Villavicencio today. 3. Continue pain relief as needed. 4. Continue Romo catheter. Job ID: [id number]
[2020-07-26] MEDS: diphenhydrAMINE 25 MG CAP PO PRN (21:33)
[2020-07-26] MEDS: traZODone HCl 50 MG TAB PO SCH (21:33)
[2020-07-26] MEDS: PHENobarbital 32.4 MG TAB PO SCH (21:33)
[2020-07-27] MEDS: HYDROcodone/Acetaminophen 10/325 mg Tablet PO PRN ×5 (06:28→22:59)
[2020-07-27] MEDS: Levothyroxine Sodium 75 MCG TAB PO SCH (06:29)
[2020-07-27] MEDS: Calcium Carbonate 600 MG + Vit D TAB PO SCH ×2 (08:31→16:22)
[2020-07-27] MEDS: Ferrous Sulfate 325 MG TAB PO SCH (08:31)
[2020-07-27] MEDS: Primidone 50 MG TAB PO SCH ×2 (09:26→20:38)
[2020-07-27] MEDS: Cholecalciferol 1,000 UNITS (25 MCG) TAB PO SCH (09:27)
[2020-07-27] MEDS: Folic Acid 1 MG TAB PO SCH (09:27)
[2020-07-27] MEDS: hydrALAZINE 25 MG TAB PO SCH ×3 (09:27→20:40)
[2020-07-27] MEDS: Amlodipine 5 MG TAB PO SCH ×2 (09:27→20:39)
[2020-07-27] MEDS: Cyanocobalamin (Vitamin B-12) 1,000 MCG TAB PO SCH (09:27)
[2020-07-27] MEDS: LOTEPREDNOL ETABONATE EA EYE SCH ×2 (09:29→20:42)
[2020-07-27] MEDS: Tamsulosin HCl 0.4 MG CAP PO SCH (09:29)
[2020-07-27] MEDS: Finasteride 5 MG TAB PO SCH (09:29)
[2020-07-27] MEDS: valACYclovir 500 MG TAB PO SCH (09:29)
[2020-07-27] MEDS: Allopurinol 100 MG TAB PO SCH ×2 (09:29→20:39)
[2020-07-27] MEDS: Polyethylene Glycol 3350 17 GM Packet PO SCH (09:30)
[2020-07-27] MEDS: traZODone HCl 50 MG TAB PO SCH (20:38)
[2020-07-27] MEDS: PHENobarbital 32.4 MG TAB PO SCH (20:39)
[2020-07-27] MEDS: diphenhydrAMINE 25 MG CAP PO PRN (23:02)
[2020-07-28] MEDS: HYDROcodone/Acetaminophen 10/325 mg Tablet PO PRN ×7 (04:00→23:39)
[2020-07-28] MEDS: Levothyroxine Sodium 75 MCG TAB PO SCH ×2 (05:32→10:40)
[2020-07-28] MEDS ORDERED: HYDROcodone/Acetaminophen 10/325 mg Tablet ONE ×4 (09:09→23:36)
[2020-07-28] MEDS: Polyethylene Glycol 3350 17 GM Packet PO SCH (10:37)
[2020-07-28] MEDS: Primidone 50 MG TAB PO SCH ×2 (10:38→20:29)
[2020-07-28] MEDS: Ferrous Sulfate 325 MG TAB PO SCH (10:39)
[2020-07-28] MEDS: Cyanocobalamin (Vitamin B-12) 1,000 MCG TAB PO SCH (10:39)
[2020-07-28] MEDS: Calcium Carbonate 600 MG + Vit D TAB PO SCH ×2 (10:39→17:42)
[2020-07-28] MEDS: Tamsulosin HCl 0.4 MG CAP PO SCH (10:39)
[2020-07-28] MEDS: valACYclovir 500 MG TAB PO SCH (10:39)
[2020-07-28] MEDS: Amlodipine 5 MG TAB PO SCH ×2 (10:40→20:33)
[2020-07-28] MEDS: Allopurinol 100 MG TAB PO SCH ×2 (10:40→20:33)
[2020-07-28] MEDS: hydrALAZINE 25 MG TAB PO SCH ×3 (10:41→20:45)
[2020-07-28] MEDS: Folic Acid 1 MG TAB PO SCH (10:41)
[2020-07-28] MEDS: Cholecalciferol 1,000 UNITS (25 MCG) TAB PO SCH (10:41)
[2020-07-28] MEDS: LOTEPREDNOL ETABONATE EA EYE SCH ×2 (10:41→20:29)
[2020-07-28] MEDS: Finasteride 5 MG TAB PO SCH (10:41)
[2020-07-28] MEDS: traZODone HCl 50 MG TAB PO SCH (20:31)
[2020-07-28] MEDS: diphenhydrAMINE 25 MG CAP PO PRN (20:34)
[2020-07-28] MEDS: Prochlorperazine Maleate 5 MG TAB PO PRN (20:35)
[2020-07-28] MEDS ORDERED: hydrALAZINE 20 MG/ML VIAL ONE (20:43)
[2020-07-28] MEDS ORDERED: PHENobarbital 32.4 MG TAB ONE (20:43)
[2020-07-28] MEDS ORDERED: hydrALAZINE 10 MG TAB ONE ×2 (20:43→20:44)
[2020-07-28] MEDS: PHENobarbital 32.4 MG TAB PO SCH (20:45)
[2020-07-29] MEDS ORDERED: HYDROcodone/Acetaminophen 10/325 mg Tablet ONE ×3 (06:15→18:07)
[2020-07-29] MEDS: HYDROcodone/Acetaminophen 10/325 mg Tablet PO PRN ×3 (06:17→18:11)
--- NOTE | 2020-07-29 06:19 | PRG ---
DATE OF SERVICE: 07/27/2020 SUBJECTIVE: The patient is in no distress at rest. Still having significant pain on any movement. Has been seen by Dr. Villavicencio yesterday and given another treatment with Velcade and has been referred to see Dr. Kelly again for pain relief. Dr. Villavicencio has recommended PT if the patient can tolerate. If otherwise, need to discuss probable hospice treatment with family. OBJECTIVE: VITAL SIGNS: Temperature is 98.2, pulse 101, respirations 20, O2 sats 93% on room air. LUNGS: Clear. CARDIAC: Regular rhythm. ABDOMEN: Soft and nontender. SKIN/EXTREMITIES: Pale. No edema, clubbing, or cyanosis. Significant tenderness to palpation or any movement of the back. ASSESSMENT: 1. Diffuse multiple myeloma with recurrent severe back pain. 2. Chest pain secondary most likely to metastasis to the spine and ribs. 3. Tolerating chemotherapy, but unable to tolerate Physical Therapy secondary to pain. PLAN: Follow up with Dr. Kelly tomorrow for evaluation for increased pain relief and hopefully restart Physical Therapy afterwards as the patient is willing to try and wants to try Physical Therapy. Job ID: [id number]
--- NOTE | 2020-07-29 06:31 | PRG ---
DATE OF SERVICE: 07/28/2020 SUBJECTIVE: The patient has returned from Dr. Kelly's visit today with prescription in order for fentanyl patch and hydrocodone. Family is willing to try this, although, there are some concerns as his intolerance to narcotics in the past. The patient, however, wishes to do therapy and cannot because of his pain. OBJECTIVE: VITAL SIGNS: Shows temperature 98.2, pulse 97, respirations 20, O2 saturations 92% on room air. LUNGS: Clear. CARDIAC: Showed regular rhythm. ABDOMEN: Soft, nontender. SKIN: Extremities are pale with diffuse tenderness to palpation of the back. ASSESSMENT: 1. Multiple myeloma with involvement of the lumbar and thoracic spine and ribs with significant pain. 2. Urinary retention with chronic Romo catheter. 3. Recurrent anemia secondary to myeloma but stable at this time, status post transfusion. PLAN: 1. Fentanyl patch 12.5 mg every 72 hours. 2. Increase hydrocodone to 10/325 every 6 hours as needed for breakthrough pain. Plan restart PT and monitor response. Job ID: [id number]
[2020-07-29] MEDS: Primidone 50 MG TAB PO SCH ×2 (08:23→20:27)
[2020-07-29] MEDS: Cyanocobalamin (Vitamin B-12) 1,000 MCG TAB PO SCH (08:24)
[2020-07-29] MEDS: LOTEPREDNOL ETABONATE EA EYE SCH ×2 (08:24→20:28)
[2020-07-29] MEDS: valACYclovir 500 MG TAB PO SCH (08:24)
[2020-07-29] MEDS: Cholecalciferol 1,000 UNITS (25 MCG) TAB PO SCH (08:24)
[2020-07-29] MEDS: Ferrous Sulfate 325 MG TAB PO SCH (08:25)
[2020-07-29] MEDS: Folic Acid 1 MG TAB PO SCH (08:25)
[2020-07-29] MEDS: Allopurinol 100 MG TAB PO SCH ×2 (08:25→20:27)
[2020-07-29] MEDS: Tamsulosin HCl 0.4 MG CAP PO SCH (08:25)
[2020-07-29] MEDS: Finasteride 5 MG TAB PO SCH (08:25)
[2020-07-29] MEDS: Prochlorperazine Maleate 5 MG TAB PO PRN (08:25)
[2020-07-29] MEDS: Calcium Carbonate 600 MG + Vit D TAB PO SCH ×3 (08:26→16:30)
[2020-07-29] MEDS: Amlodipine 5 MG TAB PO SCH ×2 (08:26→20:26)
[2020-07-29] MEDS: Polyethylene Glycol 3350 17 GM Packet PO SCH (08:28)
[2020-07-29] MEDS: hydrALAZINE 25 MG TAB PO SCH ×4 (08:56→20:28)
[2020-07-29] MEDS ORDERED: PHENobarbital 32.4 MG TAB ONE (20:08)
[2020-07-29] MEDS: PHENobarbital 32.4 MG TAB PO SCH (20:27)
[2020-07-29] MEDS: traZODone HCl 50 MG TAB PO SCH (20:27)
[2020-07-30] MEDS ORDERED: HYDROcodone/Acetaminophen 10/325 mg Tablet ONE ×2 (01:25→10:44)
[2020-07-30] MEDS: HYDROcodone/Acetaminophen 10/325 mg Tablet PO PRN ×3 (01:30→19:28)
[2020-07-30] MEDS: diphenhydrAMINE 25 MG CAP PO PRN ×2 (01:32→20:59)
[2020-07-30] MEDS: Levothyroxine Sodium 75 MCG TAB PO SCH (05:53)
[2020-07-30] MEDS: Ferrous Sulfate 325 MG TAB PO SCH (08:26)
[2020-07-30] MEDS: Cholecalciferol 1,000 UNITS (25 MCG) TAB PO SCH (08:27)
[2020-07-30] MEDS: hydrALAZINE 25 MG TAB PO SCH ×3 (08:28→21:00)
[2020-07-30] MEDS: valACYclovir 500 MG TAB PO SCH (08:28)
[2020-07-30] MEDS: Folic Acid 1 MG TAB PO SCH (08:29)
[2020-07-30] MEDS: Cyanocobalamin (Vitamin B-12) 1,000 MCG TAB PO SCH (08:29)
[2020-07-30] MEDS: Allopurinol 100 MG TAB PO SCH ×2 (08:29→21:00)
[2020-07-30] MEDS: Finasteride 5 MG TAB PO SCH (08:29)
[2020-07-30] MEDS: Tamsulosin HCl 0.4 MG CAP PO SCH (08:30)
[2020-07-30] MEDS: Calcium Carbonate 600 MG + Vit D TAB PO SCH ×2 (08:30→17:37)
[2020-07-30] MEDS: Primidone 50 MG TAB PO SCH ×2 (08:31→21:00)
[2020-07-30] MEDS: Polyethylene Glycol 3350 17 GM Packet PO SCH ×2 (08:31→08:40)
[2020-07-30] MEDS: LOTEPREDNOL ETABONATE EA EYE SCH ×2 (08:33→21:04)
[2020-07-30] MEDS ORDERED: Amlodipine 5 MG TAB ONE (08:49)
[2020-07-30] MEDS: Amlodipine 5 MG TAB PO SCH ×2 (08:54→20:59)
[2020-07-30] MEDS: traZODone HCl 50 MG TAB PO SCH (20:59)
[2020-07-30] MEDS: PHENobarbital 32.4 MG TAB PO SCH (20:59)
[2020-07-31] MEDS: Levothyroxine Sodium 75 MCG TAB PO SCH (06:19)
[2020-07-31] MEDS: Cholecalciferol 1,000 UNITS (25 MCG) TAB PO SCH (08:36)
[2020-07-31] MEDS: hydrALAZINE 25 MG TAB PO SCH ×3 (08:37→20:50)
[2020-07-31] MEDS: Folic Acid 1 MG TAB PO SCH (08:37)
[2020-07-31] MEDS: Ferrous Sulfate 325 MG TAB PO SCH (08:37)
[2020-07-31] MEDS: Cyanocobalamin (Vitamin B-12) 1,000 MCG TAB PO SCH (08:38)
[2020-07-31] MEDS: Amlodipine 5 MG TAB PO SCH ×2 (08:38→20:50)
[2020-07-31] MEDS: Calcium Carbonate 600 MG + Vit D TAB PO SCH ×2 (08:39→16:01)
[2020-07-31] MEDS: Allopurinol 100 MG TAB PO SCH ×2 (08:39→20:50)
[2020-07-31] MEDS: Tamsulosin HCl 0.4 MG CAP PO SCH (08:39)
[2020-07-31] MEDS: valACYclovir 500 MG TAB PO SCH (08:40)
[2020-07-31] MEDS: Primidone 50 MG TAB PO SCH ×2 (08:40→20:50)
[2020-07-31] MEDS: Finasteride 5 MG TAB PO SCH (08:41)
[2020-07-31] MEDS: Polyethylene Glycol 3350 17 GM Packet PO SCH (08:42)
[2020-07-31] MEDS: LOTEPREDNOL ETABONATE EA EYE SCH ×2 (08:43→20:49)
[2020-07-31] MEDS: HYDROcodone/Acetaminophen 10/325 mg Tablet PO PRN ×3 (09:27→22:02)
[2020-07-31] MEDS: traZODone HCl 50 MG TAB PO SCH (20:50)
[2020-07-31] MEDS: PHENobarbital 32.4 MG TAB PO SCH (20:50)
[2020-07-31] MEDS: diphenhydrAMINE 25 MG CAP PO PRN (20:56)
[2020-08-01] MEDS: HYDROcodone/Acetaminophen 10/325 mg Tablet PO PRN ×4 (04:36→22:47)
[2020-08-01] MEDS: Levothyroxine Sodium 75 MCG TAB PO SCH (05:24)
[2020-08-01] MEDS: Primidone 50 MG TAB PO SCH ×2 (08:07→21:15)
[2020-08-01] MEDS: Polyethylene Glycol 3350 17 GM Packet PO SCH (08:07)
[2020-08-01] MEDS: Calcium Carbonate 600 MG + Vit D TAB PO SCH ×2 (08:07→16:00)
[2020-08-01] MEDS: valACYclovir 500 MG TAB PO SCH (08:08)
[2020-08-01] MEDS: Tamsulosin HCl 0.4 MG CAP PO SCH (08:08)
[2020-08-01] MEDS: Allopurinol 100 MG TAB PO SCH ×2 (08:08→21:15)
[2020-08-01] MEDS: Cholecalciferol 1,000 UNITS (25 MCG) TAB PO SCH (08:08)
[2020-08-01] MEDS: Ferrous Sulfate 325 MG TAB PO SCH (08:09)
[2020-08-01] MEDS: Finasteride 5 MG TAB PO SCH (08:09)
[2020-08-01] MEDS: Amlodipine 5 MG TAB PO SCH ×2 (08:09→21:16)
[2020-08-01] MEDS: Folic Acid 1 MG TAB PO SCH (08:10)
[2020-08-01] MEDS: LOTEPREDNOL ETABONATE EA EYE SCH ×2 (08:10→21:14)
[2020-08-01] MEDS: hydrALAZINE 25 MG TAB PO SCH ×3 (08:10→21:16)
[2020-08-01] MEDS: Cyanocobalamin (Vitamin B-12) 1,000 MCG TAB PO SCH (08:10)
[2020-08-01 08:20] VITALS: BMI 23.6
--- NOTE | 2020-08-01 13:31 | PRG ---
DATE OF SERVICE: 07/31/2020 SUBJECTIVE: Mr. East is resting in bed and just finished lunch. He denies any questions or concerns. Pain is well controlled. He feels like he is getting stronger. No family at bedside. Discussed with Nursing. OBJECTIVE: VITAL SIGNS: He is afebrile. Heart rate is 89, respirations 16, oxygen saturation 93% on room air, and blood pressure is 121/72. CARDIOVASCULAR SYSTEM: S1 and S2 plus. RESPIRATORY SYSTEM: Normal vesicular breath sounds. ABDOMEN: Soft and nontender. Bowel sounds heard in all quadrants. EXTREMITIES: Without cyanosis or clubbing. CENTRAL NERVOUS SYSTEM: Generalized weakness, otherwise nonfocal. IMPRESSION: 1. Multiple myeloma. 2. T11 compression fracture, status post kyphoplasty. 3. Anemia of chronic disease. 4. Multiple rib fractures. 5. History of colon cancer, status post colostomy. 6. Dyslipidemia. 7. Hypertension. 8. Hypothyroidism. PLAN: 1. Continue current medications. 2. Nutritional support. 3. Colostomy care. 4. Spinal precautions. 5. Physical therapy. 6. Routine laboratory values. 7. Discussed with the patient in detail. All questions answered. Job ID: [id number]
--- NOTE | 2020-08-01 13:52 | PRG ---
DATE OF SERVICE: 08/01/2020 SUBJECTIVE: Mr. East is doing the same, somnolent, but arousable. Denies any questions or concerns. Discussed with nursing. OBJECTIVE: VITAL SIGNS: He is afebrile, heart rate is 104, respirations 18, oxygen saturation 93% on room air, blood pressure 152/68. CARDIOVASCULAR SYSTEM: S1 and S2 plus. RESPIRATORY SYSTEM: Normal vesicular breath sounds. ABDOMEN: Soft, nontender. Bowel sounds heard in all quadrants. EXTREMITIES: Without cyanosis or clubbing. CENTRAL NERVOUS SYSTEM: Generalized weakness. IMPRESSION: 1. T11 compression fracture, status post kyphoplasty. 2. Multiple myeloma. 3. Hypertension. 4. Dyslipidemia. 5. Deconditioning. 6. Urinary retention requiring Romo catheter placement. PLAN: 1. Continue current medications. 2. Romo catheter care. 3. Heart-healthy diet. 4. Spinal precautions. 5. DVT prophylaxis. 6. Routine laboratory values. 7. Dr. Jimenez back [facility]. Job ID: [id number]
[2020-08-01] MEDS: traZODone HCl 50 MG TAB PO SCH (21:15)
[2020-08-01] MEDS: PHENobarbital 32.4 MG TAB PO SCH (21:16)
[2020-08-01] MEDS: diphenhydrAMINE 25 MG CAP PO PRN (21:16)
[2020-08-02] MEDS: Levothyroxine Sodium 75 MCG TAB PO SCH (05:46)
[2020-08-02] MEDS: Allopurinol 100 MG TAB PO SCH ×2 (08:06→20:57)
[2020-08-02] MEDS: Polyethylene Glycol 3350 17 GM Packet PO SCH (08:06)
[2020-08-02] MEDS: Calcium Carbonate 600 MG + Vit D TAB PO SCH ×2 (08:06→16:32)
[2020-08-02] MEDS: HYDROcodone/Acetaminophen 10/325 mg Tablet PO PRN ×4 (08:07→20:56)
[2020-08-02] MEDS: valACYclovir 500 MG TAB PO SCH (08:08)
[2020-08-02] MEDS: Ferrous Sulfate 325 MG TAB PO SCH (08:08)
[2020-08-02] MEDS: Cyanocobalamin (Vitamin B-12) 1,000 MCG TAB PO SCH (08:09)
[2020-08-02] MEDS: Primidone 50 MG TAB PO SCH ×2 (08:09→20:55)
[2020-08-02] MEDS: Amlodipine 5 MG TAB PO SCH ×2 (08:10→20:57)
[2020-08-02] MEDS: Tamsulosin HCl 0.4 MG CAP PO SCH (08:10)
[2020-08-02] MEDS: Finasteride 5 MG TAB PO SCH (08:10)
[2020-08-02] MEDS: hydrALAZINE 25 MG TAB PO SCH ×3 (08:10→20:57)
[2020-08-02] MEDS: Folic Acid 1 MG TAB PO SCH (08:11)
[2020-08-02] MEDS: Cholecalciferol 1,000 UNITS (25 MCG) TAB PO SCH (08:11)
[2020-08-02] MEDS: LOTEPREDNOL ETABONATE EA EYE SCH ×2 (08:13→20:55)
[2020-08-02] MEDS: traZODone HCl 50 MG TAB PO SCH (20:55)
[2020-08-02] MEDS: diphenhydrAMINE 25 MG CAP PO PRN (20:55)
[2020-08-02] MEDS: PHENobarbital 32.4 MG TAB PO SCH (20:56)
--- NOTE | 2020-08-03 06:00 | PRG ---
DATE OF SERVICE: 07/30/2020 SUBJECTIVE: The patient has had therapy this morning with significant pain, but did take some steps in the room and in the [place]. OBJECTIVE: VITAL SIGNS: Temperature 96.5; pulse 72 at rest, increases to 115 with exercise; blood pressure up to 193/86; O2 sats however stay stable at 94%. LUNGS: Clear. CARDIAC: Regular rhythm. ABDOMEN: Soft and nontender. SKIN/EXTREMITIES: No edema, clubbing, or cyanosis, but very pale. Oral mucous membranes are not hydrated. ASSESSMENT: 1. Multiple myeloma, on chemotherapy. Significant anemia, but stable status post transfusion last week. 2. Severe pain secondary to compression fracture and possible metastatic disease, back and ribs, improved with fentanyl patch, but still persistent. 3. Urinary retention, stable with catheter. 4. Deconditioning, but working with therapy. PLAN: 1. Continue PT and OT. 2. Continue pain relief with increase fentanyl patch to 25 and hydrocodone as needed for pain. 3. Therapy wishes to continue working and so this patient, and will continue with therapy. Job ID: [id number]
[2020-08-03 06:07] LABS: Anisocytosis MODERATE=16-30 cells (100X) (0-5/hpf); Band 9 % (5-11); Eosinophils 2 % (0-10); Hemoglobin 8.1 g/dL (14.0-18.0); Hypochromia SLIGHT = 6-15 cells (100X) (0-5/hpf); Lymphocytes 43 % (21-51); MDiff Complete? YES; Mean Corpuscular HGB CONC 34.2 g/dL (32.0-36.0); Mean Corpuscular Hemoglobin 34.3 pg (27.0-31.0); Mean Platelet Volume 6.5 fL (7.4-10.4); Metamyelocyte 1 % (0-0); Monocytes 2 % (0-10); Neutrophil 42 % (42-75); Platelet Count 99 thou/uL (130-400); Platelet Morphology Comment Appears Decreased; RBC Distribution Width 18.4 % (11.5-14.5); Red Blood Cell (RBC) Count 2.37 mill/uL (4.70-6.10); White Blood Cell (WBC) Count 7.8 thou/uL (4.8-10.8)
--- NOTE | 2020-08-03 06:10 | PRG ---
DATE OF SERVICE: 08/02/2020 SUBJECTIVE: The patient is lying in bed, resting. States he had a nice weekend with controlled pain at rest a bit but has not done therapy, but is ready for therapy today. OBJECTIVE: VITAL SIGNS: Temperature 99.3, pulse 94, respirations 18, O2 saturation 93% on room air. LUNGS: Clear. CARDIAC: Shows regular rhythm. ABDOMEN: Soft, nontender. SKIN/EXTREMITIES: No edema, clubbing, cyanosis. NEUROLOGICAL: Intact. ASSESSMENT: 1. Multiple myeloma extension into the ribs and back with compression fracture of the spine, severe pain, treated with fentanyl patch and hydrocodone. 2. Severe deconditioning, work with therapy. 3. Recurrent anemia, stable, status post transfusion and we will repeat labs in the morning. 4. Urinary retention, stable with Romo catheter. Continue until patient is mobile, but we will monitor for infection. Job ID: [id number]
[2020-08-03 06:13] LABS: ALT (SGPT) 18 U/L (8-55); AST (SGOT) 17 U/L (5-34); Albumin 3.3 g/dL (3.4-4.8); Alkaline Phosphatase 99 U/L (40-110); Anion Gap 13 mmol/L (10-20); BUN (Urea Nitrogen) 19 mg/dL (8.4-25.7); Bilirubin, Total 0.3 mg/dL (0.2-1.2); Calc. Creatinine Clearance 46 mL/min (70-130); Calcium 7.4 mg/dL (7.8-10.44); Carbon Dioxide 21 mmol/L (23-31); Chloride 109 mmol/L (98-107); Globulin 2.3 g/dL (2.4-3.5); Glucose 107 mg/dL (83-110); Potassium 4.6 mmol/L (3.5-5.1); Protein, Total 5.6 g/dL (5.8-8.1); Sodium 138 mmol/L (136-145)
[2020-08-03] MEDS: Levothyroxine Sodium 75 MCG TAB PO SCH (06:13)
--- NOTE | 2020-08-03 06:47 | PRG ---
DATE OF SERVICE: 07/29/2020 SUBJECTIVE: The patient fairly comfortable at rest, on his increased fentanyl patch of 25 mcg every 72 hours, but is still having significant pain with any exercise but is willing to start again on PT. He is having no shortness of breath or chest pain at this time. OBJECTIVE: VITAL SIGNS: Show his blood pressure is 169/72; pulse 101, increases to 121 with exercise; and O2 saturations 92% on room air. LUNGS: Clear. CARDIAC: Shows regular rhythm. ABDOMEN: Soft and nontender. ASSESSMENT: 1. Multiple myeloma, status post recent induction of Velcade by Dr. Muñoz and recent evaluation by his pain physician, Dr. Kelly with initiation of fentanyl patch. He has fair control of his pain at rest and is having tolerable pain with exercise and is attempting to work with Therapy. 2. History of urinary retention with chronic Romo catheter. 3. Recurrent anemia secondary to melanoma but stable. PLAN: 1. Continue fentanyl patch 25 mcg every 72 hours. 2. Continue hydrocodone 10/325 every 6 hours as needed for pain. 3. Continue PT/OT as tolerated as the patient wishes to continue on therapy. Job ID: [id number]
[2020-08-03 07:03] LABS: Bilirubin Negative (Negative); Blood, Urine Small (Negative); Clarity Slightly Cloudy (Clear); Glucose, Urine (Dipstick) Negative (Negative); Ketone, Urine Negative (Negative); Leukocyte Large (Negative); Nitrite Positive (Negative); Protein, Urine (Dipstick) 100 mg/dL (Neg-Trace); Specific Gravity, Urine 1.015 (1.005-1.030); Urobilinogen 0.2 mg/dL (Less than 2)
[2020-08-03 07:14] LABS: WBC/HPF Greater Than 50 HPF (0-3)
[2020-08-03 07:15] LABS: Bacteria/HPF 2+ HPF (None Seen)
[2020-08-03] MEDS: HYDROcodone/Acetaminophen 10/325 mg Tablet PO PRN ×3 (07:26→17:54)
[2020-08-03] MEDS: LOTEPREDNOL ETABONATE EA EYE SCH ×2 (07:26→21:06)
[2020-08-03] MEDS: Allopurinol 100 MG TAB PO SCH ×2 (07:27→21:03)
[2020-08-03] MEDS: Calcium Carbonate 600 MG + Vit D TAB PO SCH ×2 (07:28→17:54)
[2020-08-03] MEDS: Primidone 50 MG TAB PO SCH ×2 (07:28→21:02)
[2020-08-03] MEDS: Folic Acid 1 MG TAB PO SCH (07:29)
[2020-08-03] MEDS: Amlodipine 5 MG TAB PO SCH ×2 (07:29→21:03)
[2020-08-03] MEDS: Tamsulosin HCl 0.4 MG CAP PO SCH (07:29)
[2020-08-03] MEDS: valACYclovir 500 MG TAB PO SCH (07:30)
[2020-08-03] MEDS: Cyanocobalamin (Vitamin B-12) 1,000 MCG TAB PO SCH (07:30)
[2020-08-03] MEDS: Cholecalciferol 1,000 UNITS (25 MCG) TAB PO SCH (07:30)
[2020-08-03] MEDS: Ferrous Sulfate 325 MG TAB PO SCH (07:30)
[2020-08-03] MEDS: Finasteride 5 MG TAB PO SCH (07:31)
[2020-08-03] MEDS: hydrALAZINE 25 MG TAB PO SCH ×3 (07:31→21:03)
[2020-08-03] MEDS: Polyethylene Glycol 3350 17 GM Packet PO SCH (07:32)
[2020-08-03] MEDS: PHENobarbital 32.4 MG TAB PO SCH (21:03)
[2020-08-03] MEDS: traZODone HCl 50 MG TAB PO SCH (21:03)
[2020-08-04] MEDS: HYDROcodone/Acetaminophen 10/325 mg Tablet PO PRN ×4 (00:20→20:48)
[2020-08-04] MEDS: diphenhydrAMINE 25 MG CAP PO PRN ×2 (00:20→20:47)
[2020-08-04] MEDS: Levothyroxine Sodium 75 MCG TAB PO SCH (06:15)
[2020-08-04] MEDS: Folic Acid 1 MG TAB PO SCH (08:49)
[2020-08-04] MEDS: Allopurinol 100 MG TAB PO SCH ×2 (08:49→20:48)
[2020-08-04] MEDS: Cyanocobalamin (Vitamin B-12) 1,000 MCG TAB PO SCH (08:49)
[2020-08-04] MEDS: Tamsulosin HCl 0.4 MG CAP PO SCH (08:49)
[2020-08-04] MEDS: Primidone 50 MG TAB PO SCH ×2 (08:49→20:47)
[2020-08-04] MEDS: Calcium Carbonate 600 MG + Vit D TAB PO SCH ×2 (08:49→17:39)
[2020-08-04] MEDS: Finasteride 5 MG TAB PO SCH (08:49)
[2020-08-04] MEDS: Amlodipine 5 MG TAB PO SCH ×2 (08:50→20:49)
[2020-08-04] MEDS: valACYclovir 500 MG TAB PO SCH (08:50)
[2020-08-04] MEDS: Ferrous Sulfate 325 MG TAB PO SCH (08:50)
[2020-08-04] MEDS: Cholecalciferol 1,000 UNITS (25 MCG) TAB PO SCH (08:50)
[2020-08-04] MEDS: hydrALAZINE 25 MG TAB PO SCH ×3 (08:50→20:49)
[2020-08-04] MEDS: LOTEPREDNOL ETABONATE EA EYE SCH ×2 (08:52→20:46)
[2020-08-04] MEDS: Polyethylene Glycol 3350 17 GM Packet PO SCH (08:52)
[2020-08-04] MEDS: traZODone HCl 50 MG TAB PO SCH (20:48)
[2020-08-04] MEDS: PHENobarbital 32.4 MG TAB PO SCH (20:49)
[2020-08-05] MEDS: HYDROcodone/Acetaminophen 10/325 mg Tablet PO PRN ×3 (03:17→15:04)
--- NOTE | 2020-08-05 06:03 | PRG ---
DATE OF SERVICE: 08/03/2020 SUBJECTIVE: The patient has been refused by insurance with discharge date set to the end of the week for further therapy. He has been seen by interventional radiologist, who has felt that he needs to see oncologist again because of persistent small bilateral pleural effusions and atelectasis. The patient, however, feels well at rest, but has significant pain on exercise. OBJECTIVE: VITAL SIGNS: Temperature 97.7, pulse 104, respirations 20, O2 sat is 93% on room air. Pulse, however, increased to 126 with exercise. Blood pressure remained stable at 150/75 and O2 sat is stable at 95% on room air. LUNGS: Clear. CARDIAC: Regular rhythm. ABDOMEN: Soft and nontender. ASSESSMENT: 1. Persistent pain from multiple myeloma and compression fracture of the spine. 2. Significant deconditioning with minimal improvement and with denial of further therapy by insurance. 3. Multiple myeloma with recent Velcade treatment. 4. Evaluation by interventional radiologist with question about need for further evaluation of effusions. PLAN: 1. Discussed discharge planning with Dr. Villavicencio and family. 2. Continue pain relief. 3. Repeat laboratories today. Job ID: [id number]
--- NOTE | 2020-08-05 06:09 | PRG ---
DATE OF SERVICE: 08/04/2020 SUBJECTIVE: The patient feels well, lying in the bed, weak but with tolerable pain, increasing appetite. No shortness of breath at rest. OBJECTIVE: VITAL SIGNS: Temperature 97.5, pulse 110, respirations 18, O2 saturations 95% on room air. LUNGS: Are clear. CARDIAC EXAMINATION: Shows regular rhythm. ABDOMEN: Soft, nontender. LABORATORY DATA: Sodium 138, potassium 4.6, chloride 109, bicarb 21, BUN 19, creatinine 1.3, total protein 3.3, albumin 2.3, calcium 7.4, AST 17, ALT 18. White count 7800, hematocrit 23, hemoglobin 8.1. Urinalysis showed greater than 50 white cells. ASSESSMENT: 1. Possible contaminated urine versus infection. We will obtain culture. 2. Discuss discharge planning with Dr. Villavicencio, his family requesting further evaluation. 3. Possibly repeat CT scan to further delineate pleural effusion, but vital signs and oxygen appear to be stable. Job ID: [id number]
[2020-08-05] MEDS: Levothyroxine Sodium 75 MCG TAB PO SCH (06:27)
[2020-08-05] MEDS: Polyethylene Glycol 3350 17 GM Packet PO SCH (08:17)
[2020-08-05] MEDS: Tamsulosin HCl 0.4 MG CAP PO SCH (08:17)
[2020-08-05] MEDS: Allopurinol 100 MG TAB PO SCH ×2 (08:17→20:47)
[2020-08-05] MEDS: Folic Acid 1 MG TAB PO SCH (08:17)
[2020-08-05] MEDS: Amlodipine 5 MG TAB PO SCH ×2 (08:17→20:48)
[2020-08-05] MEDS: Ferrous Sulfate 325 MG TAB PO SCH (08:18)
[2020-08-05] MEDS: hydrALAZINE 25 MG TAB PO SCH ×3 (08:18→20:48)
[2020-08-05] MEDS: Cholecalciferol 1,000 UNITS (25 MCG) TAB PO SCH (08:18)
[2020-08-05] MEDS: Cyanocobalamin (Vitamin B-12) 1,000 MCG TAB PO SCH (08:18)
[2020-08-05] MEDS: Calcium Carbonate 600 MG + Vit D TAB PO SCH ×2 (08:19→17:21)
[2020-08-05] MEDS: Finasteride 5 MG TAB PO SCH (08:19)
[2020-08-05] MEDS: valACYclovir 500 MG TAB PO SCH (08:19)
[2020-08-05] MEDS: LOTEPREDNOL ETABONATE EA EYE SCH ×2 (08:20→20:47)
[2020-08-05] MEDS: Primidone 50 MG TAB PO SCH ×3 (08:20→20:48)
[2020-08-05] MEDS: PHENobarbital 32.4 MG TAB PO SCH (20:46)
[2020-08-05] MEDS: traZODone HCl 50 MG TAB PO SCH (20:47)
[2020-08-05] MEDS: diphenhydrAMINE 25 MG CAP PO PRN (20:48)
[2020-08-06] MEDS: HYDROcodone/Acetaminophen 10/325 mg Tablet PO PRN ×3 (01:32→14:59)
[2020-08-06] MEDS: Levothyroxine Sodium 75 MCG TAB PO SCH (05:28)
[2020-08-06] MEDS: valACYclovir 500 MG TAB PO SCH (08:18)
[2020-08-06] MEDS: Calcium Carbonate 600 MG + Vit D TAB PO SCH (08:18)
[2020-08-06] MEDS: Amlodipine 5 MG TAB PO SCH (08:18)
[2020-08-06] MEDS: Allopurinol 100 MG TAB PO SCH (08:18)
[2020-08-06] MEDS: Cyanocobalamin (Vitamin B-12) 1,000 MCG TAB PO SCH (08:19)
[2020-08-06] MEDS: Cholecalciferol 1,000 UNITS (25 MCG) TAB PO SCH (08:19)
[2020-08-06] MEDS: Primidone 50 MG TAB PO SCH (08:19)
[2020-08-06] MEDS: Ferrous Sulfate 325 MG TAB PO SCH (08:19)
[2020-08-06] MEDS: LOTEPREDNOL ETABONATE EA EYE SCH (08:20)
[2020-08-06] MEDS: Tamsulosin HCl 0.4 MG CAP PO SCH (08:20)
[2020-08-06] MEDS: Polyethylene Glycol 3350 17 GM Packet PO SCH (08:20)
[2020-08-06] MEDS: hydrALAZINE 25 MG TAB PO SCH ×2 (08:20→14:59)
[2020-08-06] MEDS: Finasteride 5 MG TAB PO SCH (08:20)
[2020-08-06] MEDS: Folic Acid 1 MG TAB PO SCH (08:20)
--- NOTE | 2020-08-06 11:19 | PRG ---
DATE OF SERVICE: 08/06/2020 SUBJECTIVE: The patient is in his room. Awaiting evaluation and conference with family and occupational therapy. I discussed with management and states that they will present him with today as he is officially off insurance today. OBJECTIVE: VITAL SIGNS: Shows temperature 97.3, pulse 98, respirations 20, O2 saturations 95% on room air. LUNGS: Clear. CARDIAC: Showed regular rhythm. ABDOMEN: Soft and nontender. SKIN/EXTREMITIES: Showed no edema, clubbing, or cyanosis. ASSESSMENT: 1. Diffuse multiple myeloma, on chemotherapy and followed by Dr. Villavicencio. 2. Recurrent severe pain in the back and rib secondary to myeloma and compression fracture, appears to be stabilized, but still significant with the patient unable to walk, but able to ambulate with wheelchair and transfer according to the patient. 3. Recurrent anemia, stable. 4. Urinary obstruction. Romo catheter in place, being followed by Dr. Sneed. 5. Colonized Romo catheterization with no evidence of infection. 6. Small bilateral effusion, stable. PLAN: 1. Conference with Occupational Therapy. 2. Discharge planning to the [facility] or presentation with . Job ID: [id number]
--- NOTE | 2020-08-06 11:24 | PRG ---
DATE OF SERVICE: 08/05/2020 SUBJECTIVE: The patient lying in bed, visiting with his daughter, and stating that he is wanting to go home. He is stating that he did ambulate in a wheelchair and was transferred with minimal assistance yesterday. Daughter states that she needs to see if he can transfer with her assistance and is requesting a visit with the occupational therapy because if she cannot assist him, then he needs to go to the alf as he has been denied for any further payment by the insurance company. OBJECTIVE: VITAL SIGNS: Show temperature is 97, pulse 96, respirations 18, O2 saturations 93% on room air. LUNGS: Clear. CARDIAC: Showed regular rhythm. ABDOMEN: Soft and nontender. SKIN AND EXTREMITIES: Show tenderness to palpation of the entire lumbar spine and of the ribs. ASSESSMENT: 1. Diffuse multiple myeloma involving the ribs and spine. 2. Compression fracture of the spine. 3. Recurrent pain in back and ribs. 4. Recurrent anemia, stable. 5. Lower tract obstructive symptoms with Romo catheter in place to be changed by Dr. Sneed next month and arrange for family conference with occupational therapy tomorrow morning and discharge either to a alf or arrange for payment to remain here or to be discharged home. Job ID: [id number]
[2020-08-06 15:51] VITALS: BP 154/69; TEMP 97.5
--- NOTE | 2020-08-11 09:26 | PQF ---
CLINICAL DOCUMENTATION CLARIFICATION FORM: Dear : Ji Jimenez MD Date / Time: 08/11/2020 Please exercise your independent, professional judgment in responding to the clarification form. Clinical indicators are provided on the bottom of this form for your review Please check appropriate box(es): [ ] Protein Calorie Malnutrition: [ ] Mild [ x ] Moderate [ ] Severe [ ] Other Malnutrition (please specify) [ ] Underweight without malnutrition [ ] Cachexia [ ] Other diagnosis (Please specify if any) [ ] Unable to determine In addition, please specify: Present on Admission (POA): [ ] Yes [ ] No [ ] Unable to determine Physician Signature: Date/Time: For continuity of documentation, please document condition throughout progress notes and discharge summary. Thank You. To be completed by CDI/Coding staff for physician review: Present Clinical Indicators - Signs / Symptoms / Labs Results and Location in Medical Record [x] Malnutrition, Failure to Thrive, Cachexia Progress notes on 07/20 [x] BMI of 23.6 Registered dietitian on 07/19 Two or More of the Following ASPEN Criteria: [x] deconditioning Progress notes on 07/19 [x] Albumin3.1, calcium-7.3 Laboratory on 07/18, 07/17 [ ] Loss of Muscle Mass [ ] Loss of Subcutaneous Fat [ ] Localized/Generalized Fluid Accumulation [ ] Diminished Handgrip Strength Present Risk Factors Results and Location in Medical Record [x] Aged person 80 yrs H&P on 07/21 [x] Multiple myelma H&P on 07/21 [x] On chemotherapy H&P on 07/21 [ ] Medication [ ] PEG tube [ ] Short gut syndrome Present Treatments Results and Location in Medical Record [x] Dietary consult Registered dietitian on 07/19,07/23,07/30 [ ] Nutritional supplements [ ] TPN / tube feedings [ ] Assistance with feeding [ ] Appetite stimulant - medication CDS/Pattern Painter Signature: AAS Phone #: Date/Time: 08/11/2020 Moderate Malnutrition (in acute illness) ? Energy Intake: <75% of estimated energy requirement for > 7 days ? Weight Loss: 1-2%/1 week; 5%/ 1 month; 7.5%/3 months ? Other: mild body fat loss; mild muscle mass loss; mild fluid accumulation; Severe Malnutrition (in acute illness) ? Energy Intake: ? 50% of estimated energy requirement for ? 5 days ? Weight Loss: >2%/1 week; >5%/1 month; >7.5%/3 months ? Other: moderate body fat loss; moderate muscle mass loss; moderate- severe fluid accumulation; measurably reduced associate curator strength Moderate Malnutrition (in chronic illness) ? Energy Intake: <75% of estimated energy requirement for ?1 month ? Weight Loss: 5%/1 month; 7.5%/3 months; 10%/6 months; 20%/1 year ? Other: mild body fat loss; mild muscle mass loss; mild fluid accumulation Severe Malnutrition (in chronic illness) ? Energy Intake: ?75% of estimated energy requirement for ?1 month ? Weight Loss: >5%/1 month; >7.5%/3 months; >10%/6 months; >20%/1 year ? Other: severe body fat loss; severe muscle mass loss; severe fluid accumulation; measurably reduced associate curator strength This is a permanent part of the Medical Record MTDD
== END 2020-08-06 16:25 | disposition home health service (06) | DRG 841 ==
LOC: UNDOADMIN 17:40 → NAV ACUTE 17:40
PROVIDERS: ADMIT Internal Medicine; ATTEND Internal Medicine
PROC: 30233N1 Transfusion of Nonautologous Red Blood Cells into Peripheral Vein, Percutaneous Approach (ICD-10-PCS; principal; 2020-07-23)
DX: C90.00 Multiple myeloma not having achieved remission (principal); C79.51 Secondary malignant neoplasm of bone; J90 Pleural effusion, not elsewhere classified; E44.0 Moderate protein-calorie malnutrition; G40.909 Epilepsy, unspecified, not intractable, without status epilepticus; E78.6 Lipoprotein deficiency; E03.9 Hypothyroidism, unspecified; I10 Essential (primary) hypertension; N40.1 Benign prostatic hyperplasia with lower urinary tract symptoms; R33.9 Retention of urine, unspecified; E88.09 Other disorders of plasma-protein metabolism, not elsewhere classified; D63.8 Anemia in other chronic diseases classified elsewhere; Z85.038 Personal history of other malignant neoplasm of large intestine; Z90.49 Acquired absence of other specified parts of digestive tract; Z93.3 Colostomy status; Z80.7 Family history of other malignant neoplasms of lymphoid, hematopoietic and related tissues; Z80.9 Family history of malignant neoplasm, unspecified; Z79.899 Other long term (current) drug therapy; Z92.21 Personal history of antineoplastic chemotherapy; M48.54XD Collapsed vertebra, not elsewhere classified, thoracic region, subsequent encounter for fracture with routine healing; Z68.23 Body mass index [BMI] 23.0-23.9, adult
CPT/HCPCS: 36415; 36430; 71045; 72128; 72131; 80048; 80053; 80185; 81001; 84484; 85014; 85018; 85025; 86850; 86900; 86901; 87086; J0360; J8540; P9016; Q0162; Q0163; Q0164